=== PATIENT | male | born 1995 | race Caucasian/White ===

== ENCOUNTER 2019-12-24 12:27 | Emergency (ER) | payer OTHER ==
--- NOTE | 2019-12-24 12:35 | EDM.PDOC ---
ED HPI GENERAL MEDICAL PROBLEM - General Chief Complaint: Laceration Stated Complaint: CUT ON HEAD Time Seen by Provider: 12/24/19 12:34 Source of Information: Reports: Patient, RN, RN Notes Reviewed History Limitations: Reports: No Limitations - History of Present Illness INITIAL COMMENTS - FREE TEXT/NARRATIVE: Pt presents to ER with c/o a cut to his head with a fence post pounder. Denies LOC, neck pain, N/V, or any other injury. Last Tetanus vaccine was <5 yrs ago. Onset: Sudden Location: Reports: Head Severity: Mild Improves with: Reports: None Worsens with: Reports: None Associated Symptoms: Reports: No Other Symptoms - Related Data Allergies Allergy/AdvReac Type Severity Reaction Status Date / Time No Known Allergies Allergy Verified 12/24/19 12:30 Home Meds: Home Meds . [No Known Home Meds] 02/01/16 [History] Past Medical History - Past Health History Medical/Surgical History: Denies Medical/Surgical History Social & Family History - Family History Family Medical History: Noncontributory - Living Situation & Occupation Living situation: Reports: with Family Occupation: Employed ED ROS GENERAL - Review of Systems Review Of Systems: Comprehensive ROS is negative, except as noted in HPI. ED EXAM, SKIN/RASH Exam: See Below Exam Limited By: No Limitations General Appearance: Alert, WD/WN, No Apparent Distress Eye Exam: Bilateral Eye: Normal Inspection Nose: Normal Inspection Throat/Mouth: Normal Inspection Head: Normocephalic, Other (3cm "W" shaped laceration to midline frontal scalp to depth of subcutaneous tissue, no active bleeding, no FB.) Neck: Normal Inspection, Non-Tender, Full Range of Motion Respiratory/Chest: No Respiratory Distress Neurological: Alert, Oriented, CN II-XII Intact, Normal Cognition, Normal Gait, No Motor/Sensory Deficits Psychiatric: Normal Mood Skin: Warm, Dry ED SKIN PROCEDURES - Laceration/Wound Repair Anterior Medial Head Appearance: Subcutaneous, Irregular, Clean Distal NVT: Neuro & Vascular Intact Anesthetic Type: Local Local Anesthesia - Lidocaine (Xylocaine): 1% with EPI Local Anesthetic Volume: 5cc Skin Prep: Chlorhexidine (Hibiciens), Saline, Sterile Drape Saline Irrigation (cc's): 150 Exploration/Debridement/Repair: Wound Explored, In a Bloodless Field, Explored to Base, Minimal Debridement, Minimally Undermined Closed with: Katheryn Lac/Wound length In cm: 6 Suture Type: Interrupted Drain Placement: No Sterile Dressing Applied: None Tetanus Status Addressed: Yes Complications: No Course - Vital Signs Last Recorded V/S: Last Vital Signs Temp 97.8 F 12/24/19 12:31 Pulse 85 12/24/19 12:31 Resp 16 12/24/19 12:31 BP 134/87 12/24/19 12:31 Pulse Ox 99 12/24/19 12:31 - Orders/Labs/Meds Meds: Medications Discontinued Medications Generic Name Dose Route Start Last Admin Trade Name Ketan PRN Reason Stop Dose Admin Bacitracin 1 dose 12/24/19 12:37 12/24/19 12:42 Bacitracin Oint 1 Gm TOP 12/24/19 12:38 1 dose ONETIME ONE Administration Lidocaine/Epinephrine 20 ml 12/24/19 12:37 12/24/19 12:41 Xylocaine 1% With Epinephrine 1:100,000 INJECT 12/24/19 12:38 20 ml ONETIME ONE Administration Departure - Departure Time of Disposition: 13:15 Disposition: Home, Self-Care 01 Condition: Good Clinical Impression: Scalp laceration Qualifiers: Encounter type: initial encounter Qualified Code(s): S01.01XA - Laceration without foreign body of scalp, initial encounter - Discharge Information *PRESCRIPTION DRUG MONITORING PROGRAM REVIEWED*: Not Applicable *COPY OF PRESCRIPTION DRUG MONITORING REPORT IN PATIENT REA: Not Applicable Instructions: Sutures, [place], or Adhesive Wound Closure Referrals: PCP,None [Primary Care Provider] - Forms: ED Department Discharge Additional Instructions: May shampoo hair after 24 hours. Do not soak in tub or pool. Blot dry over the laceration area. Follow up in clinic in 7 to 10 days for staple removal. Sepsis Event Note - Evaluation Sepsis Screening Result: No Definite Risk - Focused Exam Vital Signs: Vital Signs Temp Pulse Resp BP Pulse Ox 12/24/19 12:31 97.8 F 85 16 134/87 99 Date Exam was Performed: 12/24/19 Time Exam was Performed: 12:54
[2019-12-24] MEDS ORDERED: Lidocaine 1% with EPINEPHrine 1:100,000 20 ML MDV INJECT ONE (12:37)
[2019-12-24] MEDS ORDERED: Bacitracin Oint 1 GM U/D Packet TOP ONE (12:37)
[2019-12-24 12:44] VITALS: BP 134/87; PULSE 85
== END 2019-12-24 12:56 | disposition home or self-care (01) ==
LOC: DL.ED 12:27
DX: S01.01XA Laceration without foreign body of scalp, initial encounter (principal); W22.8XXA Striking against or struck by other objects, initial encounter
CPT/HCPCS: 12002; 99282